=== PATIENT | male | born 1955 | race Caucasian/White ===

== ENCOUNTER 2019-08-25 23:46 | Emergency (ER) | payer OTHER ==
--- NOTE | 2019-08-26 00:04 | EDM.PDOC ---
ED HPI GENERAL MEDICAL PROBLEM - General Chief Complaint: Syncope Stated Complaint: [facility] Time Seen by Provider: 08/25/19 23:55 Source of Information: Reports: Patient, EMS History Limitations: Reports: No Limitations - History of Present Illness INITIAL COMMENTS - FREE TEXT/NARRATIVE: Patient presents by ambulance from home after a syncopal event witnessed by others. He was seated and a barstool around a kitchen island at home. Beginning approximately 1500 hrs. today he had several alcohol-containing drinks with the last drink being approximately 1 hour prior to this event meaning approximately 2-30 hours. He had been seated for a bed at although he got up periodically to stretch his legs and "work out" his left hip as it gives him discomfort. He was attempting to stand up after mentioning to family members that it was time to go home and the next thing he knew he was lying on the floor with people putting moist cloths on his forehead. He did not fall to the floor but lost consciousness and was guided to the floor by friends around him. He was told that he was "out" for maybe 60 seconds. There was no incontinence. There was no seizure-like activity. No nausea or vomiting. At this time, following transport to the hospital, he feels almost completely back to normal. He denies any prior occurrence of episodes like this. Earlier in the day he swept out his shop but that did not take long. He had reduced calorie intake throughout the afternoon and evening hours. He did eat breakfast in the morning however. He was started on lisinopril in April and takes that as well as loratadine but has no other prescription medications. He has felt tired since starting the lisinopril. Onset: Today, Sudden Location: Reports: Generalized Severity: Mild Improves with: Reports: None Worsens with: Reports: None - Related Data Allergies Allergy/AdvReac Type Severity Reaction Status Date / Time No Known Allergies Allergy Verified 08/25/19 23:48 Home Meds: Home Meds Aspirin [Halfprin] 81 mg PO DAILY 08/25/19 [History] Lisinopril [Zestril] 5 mg PO DAILY 08/25/19 [History] Loratadine [Claritin] 10 mg PO DAILY 08/25/19 [History] Past Medical History Cardiovascular History: Reports: Hypertension Social & Family History - Tobacco Use Smoking Status *Q: Never Smoker - Caffeine Use Caffeine Use: Reports: Coffee Other Caffeine Use: 3 cups daily - Recreational Drug Use Recreational Drug Use: No ED ROS GENERAL - Review of Systems Review Of Systems: See Below Constitutional: Reports: Diaphoresis. Denies: Weakness HEENT: Reports: No Symptoms Cardiovascular: Reports: Syncope. Denies: Chest Pain, Lightheadedness GI/Abdominal: Reports: No Symptoms : Denies: Incontinence Musculoskeletal: Reports: No Symptoms Neurological: Reports: Syncope. Denies: Dizziness, Headache, Numbness Psychiatric: Reports: No Symptoms - Physical Exam Exam: See Below Text/Narrative:: This is an adult male lying on the bed in room 4 in no distress. Exam Limited By: No Limitations General Appearance: Alert, No Apparent Distress Head Exam: Atraumatic Neck: Supple Respiratory/Chest: Lungs Clear Cardiovascular: Regular Rate, Rhythm, No Murmur GI/Abdominal: Soft, Non-Tender Neuro Exam (Abbreviated): Alert, Oriented, CN II-XII Intact, Normal Cognition EKG INTERPRETATION EKG Date: 08/26/19 Rhythm: NSR Rate (Beats/Min): 85 [place]: Normal P-Wave: Present QRS: Normal ST-T: Other (Slight T-wave inversion in lead 3 and to a lesser extent in aVF.) QT: Normal Comparison: NA - No Prior EKG Course - Vital Signs Last Recorded V/S: Last Vital Signs Temp 37.1 C 08/25/19 23:53 Pulse 87 08/25/19 23:53 Resp 16 08/25/19 23:53 BP 152/75 H 08/25/19 23:53 Pulse Ox 96 08/25/19 23:53 Orthostatic Blood Pressure [] 159/90 Orthostatic Blood Pressure [] 200/94 Orthostatic Blood Pressure [] 177/86 - Orders/Labs/Meds Orders: Active Orders 24 hr Category Date Time Status EKG Documentation Completion [RC] ASDIRECTED Care 08/26/19 00:15 Ordered Orthostatic Vital Signs [RC] ASDIRECTED Care 08/26/19 00:16 Ordered EKG 12 Lead [EK] Routine Ther 08/26/19 00:14 Ordered Labs: Laboratory Tests 08/26/19 08/26/19 Range/Units 00:30 00:30 WBC 8.0 (4.5-11.0) K/uL RBC 4.88 (4.30-5.90) M/uL Hgb 14.6 (12.0-15.0) g/dL Hct 44.5 (40.0-54.0) % MCV 91 (80-98) fL MCH 30 (27-31) pg MCHC 33 (32-36) % Plt Count 242 (150-400) K/uL Neut % (Auto) 72 H (36-66) % Lymph % (Auto) 18 L (24-44) % [place] % (Auto) 9 H (2-6) % Eos % (Auto) 1 L (2-4) % Baso % (Auto) 0 (0-1) % Sodium 138 L (140-148) mmol/L Potassium 3.7 (3.6-5.2) mmol/L Chloride 103 (100-108) mmol/L Carbon Dioxide 24 (21-32) mmol/L Anion Gap 14.7 H (5.0-14.0) mmol/L BUN 28 H (7-18) mg/dL Creatinine 1.3 (0.8-1.3) mg/dL Est Cr Clr Drug Dosing 61.14 mL/min Estimated GFR (MDRD) 56 L (>60) Glucose 116 H (74-106) mg/dL Calcium 8.8 (8.5-10.1) mg/dL Total Bilirubin 0.3 (0.2-1.0) mg/dL AST 16 (15-37) U/L ALT 26 (12-78) U/L Alkaline Phosphatase 88 (46-116) U/L Troponin I < 0.017 (0.000-0.056) ng/mL Total Protein 7.2 (6.4-8.2) g/dL Albumin 4.1 (3.4-5.0) g/dL Globulin 3.1 (2.3-3.5) g/dL Albumin/Globulin Ratio 1.3 (1.2-2.2) - Re-Assessments/Exams Free Text/Narrative Re-Assessment/Exam: 08/26/19 00:26 He feels essentially back to normal. I will check an EKG and also orthostatic vital signs. We'll also need to look at electrolytes. If things check out okay, he can be discharged to home. 08/26/19 01:37 I returned later to review test results which are really unremarkable. He feels good and believes he is ready to go back home. I recommend that he eat regularly throughout the next 2 days and to eliminate alcohol over the same time frame. He should talk with his doctor about the fatigue he has felt since initiating lisinopril. I don't know if the 2 are related. There is nothing alarming among his findings today. Departure - Departure Time of Disposition: 01:39 Disposition: Home, Self-Care 01 Condition: Good Clinical Impression: Syncope Qualifiers: Syncope type: unspecified Qualified Code(s): R55 - Syncope and collapse - Discharge Information *PRESCRIPTION DRUG MONITORING PROGRAM REVIEWED*: Not Applicable *COPY OF PRESCRIPTION DRUG MONITORING REPORT IN PATIENT MILIND: Not Applicable Referrals: PCP,None [Primary Care Provider] - Forms: ED Department Discharge Additional Instructions: Eat regularly over the next several days. Did not take an alcohol. Continue regular medications. Avoid sudden changes in position. Discuss fatigue possibly related to lisinopril with your primary care doctor. Return to ER if feeling worse in anyway. Sepsis Event Note - Evaluation Sepsis Screening Result: No Definite Risk - Focused Exam Vital Signs: Vital Signs Temp Pulse Resp BP Pulse Ox 08/25/19 23:53 37.1 C 87 16 152/75 H 96 Date Exam was Performed: 08/26/19 Time Exam was Performed: 01:23 - My Orders Last 24 Hours: My Active Orders 08/26/19 00:14 EKG 12 Lead [EK] Routine 08/26/19 00:15 EKG Documentation Completion [RC] ASDIRECTED 08/26/19 00:16 Orthostatic Vital Signs [RC] ASDIRECTED - Assessment/Plan Last 24 Hours: My Active Orders 08/26/19 00:14 EKG 12 Lead [EK] Routine 08/26/19 00:15 EKG Documentation Completion [RC] ASDIRECTED 08/26/19 00:16 Orthostatic Vital Signs [RC] ASDIRECTED
== END 2019-08-26 01:44 | disposition home or self-care (01) ==
LOC: JP.ED 23:46
DX: R55 Syncope and collapse (principal); I10 Essential (primary) hypertension; Z79.82 Long term (current) use of aspirin; Z79.899 Other long term (current) drug therapy
CPT/HCPCS: 36415; 80053; 84484; 85025; 93005; 99284-25